=== PATIENT | female | born 1970 | race Caucasian/White ===

== ENCOUNTER → 2017-01-31 13:07 | Outpatient (CLI) | payer BC | END | disposition home or self-care (01) | LOC: D.MAMMO 12-23 16:15 | DX: Z12.31 Encounter for screening mammogram for malignant neoplasm of breast (principal) ==

== ENCOUNTER 2019-01-29 10:00 | Outpatient (CLI) | payer BC | END 2019-01-29 23:59 | disposition home or self-care (01) | LOC: D.MAMMO 10:00 | PROVIDERS: ATTEND Family Medicine | DX: Z12.31 Encounter for screening mammogram for malignant neoplasm of breast (principal) ==